=== PATIENT | female | born 1980 | race Caucasian/White ===

== ENCOUNTER 2018-06-16 01:58 | Emergency (ER) | payer OTHER ==
[~2018-06-16] VITALS: Ht 160 cm; Wt 97.0 kg
[~2018-06-16 01:58] MED LIST: NONE PER PT
[2018-06-16] MEDS ORDERED: MORPHINE SULFATE 4 MG/ML, 1ML ONE (02:22)
[2018-06-16] MEDS ORDERED: ONDANSETRON 2MG/ML, 2ML ONE (02:22)
[2018-06-16] MEDS ORDERED: SODIUM CHLORIDE FLUSH 10ML SYR IVF ONE (02:30)
[2018-06-16] MEDS ORDERED: ACETAMINOPHEN 500 MG TABLET PO ONE (02:30)
[2018-06-16] MEDS ORDERED: ONDANSETRON 2MG/ML, 2ML IVPush ONE (02:30)
[2018-06-16] MEDS ORDERED: MORPHINE SULFATE 4 MG/ML, 1ML IVPush PRN (02:30)
[2018-06-16 02:36] LABS: BASOPHILS % (AUTO) 0 % (0-1); EOSINOPHILS # (AUTO) 0.01 x10^3/uL (0-0.4); EOSINOPHILS % (AUTO) 0 % (1-7); LYMPHOCYTES # (AUTO) 0.21 x10^3/uL (1-3.4); LYMPHOCYTES % (AUTO) 6 % (22-44); MD NO; MEAN CORPUSCULAR HEMOGLOBIN 29.6 pg (27.0-34.8); MEAN CORPUSCULAR HGB CONC 33.9 g/dL (32.4-35.8); MEAN CORPUSCULAR VOLUME 87.4 fL (80-100); MEAN PLATELET VOLUME 8.9 fL (7.4-10.4); MONOCYTES # (AUTO) 0.15 x10^3/uL (0.2-0.8); MONOCYTES % (AUTO) 4 % (2-9); NEUTROPHILS # (AUTO) 3.22 x10^3/uL (1.8-6.8); NEUTROPHILS % (AUTO) 90 % (42-75); PLATELET COUNT 172 x10^3/uL (130-400); RED BLOOD COUNT 4.43 x10^6/uL (3.82-5.3); RED CELL DISTRIBUTION WIDTH 13.5 % (9.6-15.2)
[2018-06-16] MEDS ORDERED: ACETAMINOPHEN 500 MG TABLET ONE (02:43)
[2018-06-16 02:46] LABS: ALANINE AMINOTRANSFERASE 30 U/L (12-78); ALBUMIN 3.9 g/dL (3.4-5.0); ANION GAP 10 mmol/L (5-15); CALCIUM 8.9 mg/dL (8.5-10.1); CHLORIDE 108 mmol/L (98-107); CREATININE 0.79 mg/dL (0.55-1.02)
[2018-06-16 02:49] LABS: ALKALINE PHOSPHATASE 68 U/L (45-117); BILIRUBIN,TOTAL 0.8 mg/dL (0.2-1.0); TOTAL PROTEIN 7.2 g/dL (6.4-8.2)
[2018-06-16 03:04] LABS: HCG UR SG 1.007 (1.003-1.030); MICROSCOPIC NOT IND
[2018-06-16 03:08] LABS: CULTURE INDICATED? NO
[2018-06-16] MEDS ORDERED: OMNIPAQUE 350 MG/ML, 100ML BOTTLE ONE (03:19)
[2018-06-16] MEDS ORDERED: BENZONATATE 100 MG CAPSULE PO ONE (04:00)
[2018-06-16 05:06] LABS: RAPID INFLUENZA A Negative (Negative); RAPID INFLUENZA B Negative (Negative)
[2018-06-16 05:18] VITALS: BP 100/52
== END 2018-06-16 05:22 | disposition home or self-care (01) ==
LOC: ED 05:05
DX: R10.12 Left upper quadrant pain (principal); R50.9 Fever, unspecified
CPT/HCPCS: 36415; 74177; 80053; 81003; 81025; 83690; 85025; 87400; 96374; 96375; 99284; J2405; Q9967